=== PATIENT | male | born 1970 | race African-American/Black ===

== ENCOUNTER 2020-12-23 13:58 | Emergency (ER) | payer SELFPAY ==
[2020-12-23 14:11] VITALS: BP 159/85; PULSE 72; TEMP 98.1; BMI 24.3
[2020-12-23] MEDS ORDERED: SODIUM CHLORIDE 1,000 ML IV STA (15:05)
[2020-12-23 15:30] LABS: EPI CELLS 34 /uL (0-25.1); HYALINE CASTS 1 /uL (0-3.1); PH,URINE 5.5 (5.0-8.0); URINE APPEARANCE CLEAR; URINE BACTERIA 753 /uL (0-1359); URINE BILIRUBIN NEGATIVE (NEGATIVE); URINE COLOR YELLOW; URINE GLUCOSE (UA) NEGATIVE (NEGATIVE); URINE KETONE TRACE (NEGATIVE); URINE LEUK ESTERASE TRACE (NEGATIVE); URINE NITRITE NEGATIVE (NEGATIVE); URINE PROTEIN 2+ (NEGATIVE); URINE RBC 12 /uL (0-23.9); URINE UROBILINOGEN 0.2 mg/dL (0.2-1.0); URINE WBC 69 /uL (0-25.8)
[2020-12-23 15:32] LABS: YEAST NON SEEN (NEGATIVE)
[2020-12-23 15:56] LABS: OPIATES, URI NEGATIVE (NEGATIVE)
[2020-12-23 15:57] LABS: COCAINE, UR POSITIVE (NEGATIVE); METHADONE, UR NEGATIVE (NEGATIVE); PHENCYCLIDINE,URINE NEGATIVE (NEGATIVE); URINE AMPHETAMINES NEGATIVE (NEGATIVE); URINE BARBITURATES NEGATIVE (NEGATIVE); URINE BENZODIAZEPINES NEGATIVE (NEGATIVE)
[2020-12-23 16:21] LABS: BASO % 0.6 % (0-2.0); EOS % 0.8 % (0-4.5); HEMOGLOBIN 10.4 GM/dL (11.7-16.9); LYMPH % 14.5 % (8-40); MCHC 31.7 g/dl (32.0-35.9); MEAN CELL VOLUME 78.9 fl (80-96); MEAN PLT VOLUME 8.5 fl (7.5-11.1); MONO % 8.6 % (3.8-10.2); NEUT % 75.5 % (42.8-82.8); PLATELET COUNT 255 10^3/uL (134-434); RBC 4.18 M/mm3 (4.00-5.60); RDW 21.1 % (11.9-15.9); WHITE BLOOD COUNT 4.2 K/mm3 (4.0-10.0)
[2020-12-23 16:42] LABS: CHLORIDE 114 mmol/L (98-107); SODIUM 136 mmol/L (136-145)
[2020-12-23 16:46] LABS: ALBUMIN 3.9 g/dl (3.4-5.0); CALCIUM 8.2 mg/dL (8.5-10.1); CO2 18 mmol/L (21-32)
[2020-12-23 16:47] LABS: BLOOD UREA NITROGEN 94.7 mg/dL (7-18); GLUCOSE,RANDOM 83 mg/dL (74-106); LIPASE 263 U/L (73-393)
[2020-12-23 16:50] LABS: SGOT/AST 44 U/L (15-37)
[2020-12-23 16:51] LABS: BILIRUBIN,TOTAL 0.3 mg/dL (0.2-1); TOT PROT 8.6 g/dl (6.4-8.2)
[2020-12-23 16:52] LABS: ALK PHOS 86 U/L (45-117); ANION GAP 5 MMOL/L (8-16); CREATININE 8.3 mg/dL (0.55-1.3); SGPT/ALT 17 U/L (13-61)
[2020-12-23 17:38] LABS: HIV INTERPRETATION NEGATIVE (NEGATIVE)
[2020-12-23 17:44] LABS: ANISOCYTOSIS 2+; MACROCYTOSIS 1+; PLATELET ESTIMATE NORMAL
[2020-12-23 17:53] LABS: CHLORIDE 116 mmol/L (98-107); SODIUM 143 mmol/L (136-145)
[2020-12-23 17:55] LABS: ALBUMIN 3.7 g/dl (3.4-5.0); ANION GAP 10 MMOL/L (8-16); CO2 17 mmol/L (21-32); GLUCOSE,RANDOM 84 mg/dL (74-106)
[2020-12-23 17:58] LABS: SGOT/AST 9 U/L (15-37); SGPT/ALT 10 U/L (13-61)
[2020-12-23 18:00] LABS: BILIRUBIN,TOTAL 0.2 mg/dL (0.2-1); TOT PROT 7.5 g/dl (6.4-8.2)
[2020-12-23 18:01] LABS: ALK PHOS 81 U/L (45-117)
[2020-12-23 18:05] LABS: CREATININE 8.1 mg/dL (0.55-1.3)
== END 2020-12-23 18:40 | disposition left against medical advice (07) ==
LOC: JER 13:58
PROC: 3E0337Z Introduction of Electrolytic and Water Balance Substance into Peripheral Vein, Percutaneous Approach (ICD-10-PCS; principal; 2020-12-23)
DX: R53.81 Other malaise (principal); R63.4 Abnormal weight loss; R50.9 Fever, unspecified
CPT/HCPCS: 36415; 71046-TC-FY; 80048; 80053; 80307; 81003; 83690; 85025; 87086; 87389; 87491; 87591; 93005; 93010; 99285-25

== ENCOUNTER 2021-11-24 13:57 | Emergency (ER) | payer SELFPAY ==
[2021-11-24 14:00] VITALS: BP 176/109; PULSE 73; RESP 18; TEMP 98.2; BMI 25.8
== END 2021-11-24 15:43 | disposition home or self-care (01) ==
LOC: JER 13:57 → JERFT 13:57
DX: M10.9 Gout, unspecified (principal)
CPT/HCPCS: 99283-25

== ENCOUNTER 2022-02-08 04:50 | Inpatient (IN) | payer OTHER ==
[2022-02-08 05:08] VITALS: BMI 28.3
[2022-02-08] MEDS ORDERED: cloNIDine HCL 0.1 MG TABLET PO ONE (05:34)
[2022-02-08] MEDS ORDERED: hydrALAZINE HCL 50 MG TABLET (FP) PO ONE (05:34)
[2022-02-08] MEDS ORDERED: hydrALAZINE HCL 50 MG TABLET (FP) ONE (05:42)
[2022-02-08] MEDS ORDERED: cloNIDine HCL 0.1 MG TABLET ONE (05:42)
[2022-02-08] MEDS: ALBUTEROL SO4 2.5/IPRATROPIUM 0.5 INH SOL 3 ML VIAL.NEB. NEB SCH ×4 (05:49→06:19)
[2022-02-08 05:50] LABS: HEMATOCRIT 31.8 % (35.4-49); HEMOGLOBIN 9.9 GM/dL (11.7-16.9); MCH 24.9 pg (25.7-33.7); MCHC 31.2 g/dl (32.0-35.9); MEAN CELL VOLUME 79.9 fl (80-96); MEAN PLT VOLUME 7.7 fl (7.5-11.1); PLATELET COUNT 239 10^3/uL (134-434); RBC 3.98 M/mm3 (4.00-5.60); RDW 20.6 % (11.9-15.9); WHITE BLOOD COUNT 16.9 K/mm3 (4.0-10.0)
[2022-02-08 06:10] LABS: CHLORIDE 116 mmol/L (98-107); SODIUM 142 mmol/L (136-145)
[2022-02-08 06:12] LABS: ALBUMIN 3.8 g/dl (3.4-5.0); CO2 17 mmol/L (21-32); GLUCOSE,RANDOM 93 mg/dL (74-106); INR 1.11 (0.83-1.09); MAGNESIUM 1.7 mg/dL (1.8-2.4); PROTHROMBIN TIME (PATIENT) 12.8 SEC (9.7-13.0)
[2022-02-08 06:14] LABS: ACTIVATED PTT 25.3 SECONDS (25.2-36.5)
[2022-02-08 06:15] LABS: CREATININE 7.1 mg/dL (0.55-1.3); SGPT/ALT 45 U/L (13-61)
[2022-02-08 06:16] LABS: SGOT/AST 36 U/L (15-37)
[2022-02-08] MEDS ORDERED: PIPERACILLIN/TAZOB 4.5 GM 4.5 GM in DEXTROSE 5%-WATER 100 ML IVPB ONE (06:16)
[2022-02-08] MEDS ORDERED: VANCOMYCIN 1 GM in D5W (PRE-DOCKED) 1,000 MG/250 ML IVPB ONE (06:16)
[2022-02-08 06:17] LABS: BILIRUBIN,TOTAL 0.5 mg/dL (0.2-1); TOT PROT 6.8 g/dl (6.4-8.2)
[2022-02-08 06:18] LABS: ALK PHOS 86 U/L (45-117)
[2022-02-08] MEDS ORDERED: PIPERACILLIN/TAZOB 4.5 GM 4.5 GM/100 ML BAG IVPB ONE (06:19)
[2022-02-08 06:26] LABS: VENOUS BASE EXCESS -7.9 mmol/L (-2-2); VENOUS O2 SATURATION 67.7 % (70-80); VENOUS PCO2 35.1 mmHg (38-52); VENOUS PH 7.314 (7.310-7.410)
[2022-02-08] MEDS ORDERED: VANCOMYCIN/WATER FOR INJ (PEG) 1,000 MG/200 ML BAG IVPB ONE (06:53)
[2022-02-08 07:05] LABS: ANION GAP 9 MMOL/L (8-16); BLOOD UREA NITROGEN 112.1 mg/dL (7-18)
[2022-02-08 07:16] LABS: CHLORIDE 116 mmol/L (98-107); SODIUM 143 mmol/L (136-145)
[2022-02-08 07:17] LABS: CALCIUM 8.1 mg/dL (8.5-10.1)
[2022-02-08 07:18] LABS: ANION GAP 11 MMOL/L (8-16); CO2 17 mmol/L (21-32); GLUCOSE,RANDOM 102 mg/dL (74-106)
[2022-02-08 07:21] LABS: CREATININE 7.1 mg/dL (0.55-1.3)
[2022-02-08 07:26] LABS: N-TERMINAL BNP 16901.6 pg/ml (5-125)
[2022-02-08 08:15] LABS: BLOOD UREA NITROGEN 114.2 mg/dL (7-18)
[2022-02-08 09:51] LABS: PLATELET ESTIMATE NORMAL; TARGET CELLS 1+
[2022-02-08] MEDS ORDERED: NICOTINE 14 MG/24 HOURS TOPICAL PATCH TD SCH (10:00)
[2022-02-08] MEDS ORDERED: NICOTINE 14 MG/24 HOURS TOPICAL PATCH TD ONE (10:11)
[2022-02-08] MEDS ORDERED: MAGNESIUM SULF 50% (8.12 MEQ/2 ML-1 GM VIAL) IVPB ONE (10:16)
[2022-02-08] MEDS ORDERED: MAGNESIUM 1GM/D5W - 1 GM/100 ML IVPB IVPB ONE (10:29)
[2022-02-08 13:13] VITALS: BP 173/93; PULSE 88; RESP 19; TEMP 100.3
[2022-02-09 15:31] LABS: CHOLESTEROL 146 mg/dL (50-200); IRON SERUM 20 ug/dL (50-175); TOTAL IRON BINDING CAPACITY 268 ug/dL (250-450); TRIGLYCERIDES 78 mg/dL (0-150)
[2022-02-09 15:32] LABS: LDL CHOLESTEROL (ONLY SJRH) 74 mg/dL (5-100)
[2022-02-09 15:34] LABS: HDL CHOLESTEROL 53 mg/dL (40-60)
== END 2022-02-08 13:10 | disposition short-term general hospital (02) | DRG 207 ==
LOC: JER 04:50 → JERBED 08:59
PROVIDERS: ADMIT Internal Medicine; ATTEND Internal Medicine
DX: I31.4 Cardiac tamponade (principal); I31.39 Other pericardial effusion (noninflammatory); I12.0 Hypertensive chronic kidney disease with stage 5 chronic kidney disease or end stage renal disease; N18.6 End stage renal disease; E87.20 Acidosis, unspecified; E87.5 Hyperkalemia; I25.10 Atherosclerotic heart disease of native coronary artery without angina pectoris; D64.9 Anemia, unspecified; D72.829 Elevated white blood cell count, unspecified; M10.9 Gout, unspecified
CPT/HCPCS: 0241U-QW; 36415; 71045-TC-FY; 71250-TC; 80048; 80053; 80061; 82728; 82803; 82962; 83540; 83550; 83735; 83880; 84484; 85025; 85610; 85730; 87040; 93005; 93010; 93306-TC; 99285-25

== ENCOUNTER 2022-03-05 12:23 | Observation (INO) | payer BC, OTHER ==
[2022-03-05 12:52] VITALS: RESP 18
[2022-03-05 15:40] LABS: INR 1.14 (0.83-1.09); PROTHROMBIN TIME (PATIENT) 13.1 SEC (9.7-13.0)
[2022-03-05 15:45] LABS: ALBUMIN 2.8 g/dl (3.4-5.0); BLOOD UREA NITROGEN 37.3 mg/dL (7-18)
[2022-03-05 15:49] LABS: CREATININE 4.9 mg/dL (0.55-1.3)
[2022-03-05 15:51] LABS: BILIRUBIN,TOTAL 0.2 mg/dL (0.2-1)
[2022-03-05 16:52] LABS: HEMATOCRIT 20.8 % (35.4-49); MCH 26.7 pg (25.7-33.7); MCHC 31.3 g/dl (32.0-35.9); MEAN CELL VOLUME 85.2 fl (80-96); MEAN PLT VOLUME 7.8 fl (7.5-11.1); PLATELET COUNT 250 10^3/uL (134-434); RBC 2.44 M/mm3 (4.00-5.60); RDW 18.7 % (11.9-15.9); WHITE BLOOD COUNT 7.3 K/mm3 (4.0-10.0)
[2022-03-05 16:58] LABS: HEMOGLOBIN 6.5 GM/dL (11.7-16.9)
[2022-03-05] MEDS ORDERED: CINACALCET HCL 30 MG TAB (FP) PO SCH (18:00)
[2022-03-05] MEDS ORDERED: SODIUM ZIRCONIUM CYCLOSILICATE (LOKELMA) 5 GM PACKET PO ONE (18:00)
[2022-03-05 18:02] LABS: ANISOCYTOSIS 1+; MACROCYTOSIS 0
[2022-03-05] MEDS ORDERED: FUROSEMIDE 40 MG/4 ML INJECTABLE VIAL IVPUSH ONE (20:00)
[2022-03-05] MEDS ORDERED: METOPROLOL TARTRATE 50 MG TABLET (FP) PO SCH (22:00)
[2022-03-05] MEDS ORDERED: cloNIDine HCL 0.1 MG TABLET PO SCH (22:00)
[2022-03-06 03:01] VITALS: BMI 20.9
[2022-03-06] MEDS ORDERED: CALCIUM ACETATE 667 MG CAPSULE (FP) PO SCH (08:00)
[2022-03-06] MEDS ORDERED: SEVELAMER CARBONATE 800 MG TAB (FP) PO SCH (08:00)
[2022-03-06] MEDS ORDERED: EPOETIN ALFA-EPBX 10,000 UNIT/ML VIAL IVPUSH ONE (09:30)
[2022-03-06] MEDS ORDERED: SODIUM CHLORIDE 250 ML IV PRN (09:30)
[2022-03-06 09:42] LABS: HEMATOCRIT 24.8 % (35.4-49); MCH 27.1 pg (25.7-33.7); MCHC 32.2 g/dl (32.0-35.9); MEAN CELL VOLUME 84.1 fl (80-96); MEAN PLT VOLUME 7.7 fl (7.5-11.1); PLATELET COUNT 278 10^3/uL (134-434); RBC 2.95 M/mm3 (4.00-5.60); RDW 18.4 % (11.9-15.9); WHITE BLOOD COUNT 9.5 K/mm3 (4.0-10.0)
[2022-03-06] MEDS ORDERED: amLODIPine BESYLATE 10 MG TABLET (FP) PO SCH (10:00)
[2022-03-06 10:13] LABS: ALBUMIN 2.8 g/dl (3.4-5.0); TOT PROT 5.9 g/dl (6.4-8.2)
[2022-03-06 10:15] LABS: BILIRUBIN,TOTAL 0.3 mg/dL (0.2-1); CALCIUM 8.3 mg/dL (8.5-10.1); CREATININE 6.2 mg/dL (0.55-1.3); MAGNESIUM 1.9 mg/dL (1.8-2.4)
[2022-03-06 10:16] LABS: BLOOD UREA NITROGEN 65.6 mg/dL (7-18)
[2022-03-06 13:19] VITALS: BP 152/90; PULSE 84; TEMP 98.4
== END 2022-03-06 15:03 | disposition home or self-care (01) ==
LOC: JER 12:23 → JERBED 17:10 → J7W 22:40
PROVIDERS: ADMIT Internal Medicine; ATTEND Internal Medicine
PROC: 30233N1 Transfusion of Nonautologous Red Blood Cells into Peripheral Vein, Percutaneous Approach (ICD-10-PCS; principal; 2022-03-05)
DX: D64.9 Anemia, unspecified (principal); I12.0 Hypertensive chronic kidney disease with stage 5 chronic kidney disease or end stage renal disease; N18.6 End stage renal disease; Z99.2 Dependence on renal dialysis; Z87.891 Personal history of nicotine dependence
CPT/HCPCS: 0241U-QW; 36415; 36430; 80053; 82728; 83540; 83550; 83735; 84100; 85025; 85027; 85610; 86803; 86850; 86900; 86901; 86922; 87340; 93005; 93010; 99285-25; G0378; P9058; Q5106